=== PATIENT | male | born 2005 | race Caucasian/White ===

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

== ENCOUNTER 2023-04-01 09:33 | Emergency (ER) | payer OTHER ==
[2023-04-01 09:40] VITALS: BP 111/61; PULSE 54; RESP 18; TEMP 97.6; BMI 22.3
[2023-04-01] MEDS ORDERED: NAPROXEN 500 MG TABLET ONE (10:04)
[2023-04-01] MEDS: NAPROXEN 500 MG TABLET PO ONE (10:05)
== END 2023-04-01 10:16 | disposition home or self-care (01) ==
LOC: JERFT 09:33
DX: G56.01 Carpal tunnel syndrome, right upper limb (principal); R20.2 Paresthesia of skin
CPT/HCPCS: 99283-25